=== PATIENT | male | born 1965 | race Two or more races ===

== ENCOUNTER → 2024-09-21 | Outpatient (CLI) | payer BC, SELFPAY ==
--- NOTE | 2024-09-21 15:57 | EKG_ITS ---
[facility] Test Date: 2024-09-21 Pat Name: CATIE SAGASTUME Department: Room: - Gender: Male [employer]ist: ILIA : 1965 Requested By: Holly Riggs Order Number: [id number] Reading MD: Holly Riggs Measurements Intervals Wann Rate: 49 P: 40 NH: 182 QRS: 72 QRSD: 122 T: 53 QT: 472 QTc: 430 Interpretive Statements SINUS BRADYCARDIA MODERATE INTRAVENTRICULAR CONDUCTION DELAY [110+ ms QRS DURATION] NONSPECIFIC ST ELEVATION [0.05+ mV ST ELEVATION] No previous ECG available for comparison /store/S0/[id number]
== END | disposition home or self-care (01) ==
PROVIDERS: PCP Family Medicine; Referring Provider Specialist; Visit Provider Specialist
DX: Z01.810 Encounter for preprocedural cardiovascular examination (principal)
CPT/HCPCS: 93005